=== PATIENT | female | born 1990 | race Caucasian/White ===

== ENCOUNTER 2021-08-17 09:20 | Outpatient (CLI) | payer MEDICAID ==
--- NOTE | 2021-08-17 10:19 | Ultrasound Report ---
PROCEDURE: Head or Neck Soft Tissue INDICATIONS: DISORDER OF NECK SOFT TISSUES TECHNIQUE: Real-time scanning was performed of the thyroid gland, with image documentation. COMPARISON: None FINDINGS: Right: Thyroid lobe measures 5.8 x 1.7 x 2 cm, and is homogeneous in echotexture. Left: Thyroid lobe measures 5.6 x 1.2 x 1.8 cm. Isthmus: 3 mm thick. No focal thyroid nodules are seen. A 5 mm anechoic cyst is seen within the mid left thyroid posteriorly. IMPRESSION: Mild generalized prominence of the thyroid gland. No focal thyroid nodules can be seen. ACR TI-RADS definitions and recommendations: TI-RADS 1 (benign): 0 points. FNA not needed. TI-RADS 2 (not suspicious): 2 points. FNA not needed. TI-RADS 3 (mildly suspicious): 3 points. "FNA if 2.5 cm or larger, follow up if 1.5 cm or larger (at 1, 3, and 5 years). TI-RADS 4 (moderately suspicious): 4-6 points. "FNA if 1.5 cm or larger, follow up if 1 cm or larger (at 1, 2, 3, and 5 years). TI-RADS 5 (highly suspicious): 7 points or more. "FNA if 1 cm or larger, follow up if 0.5 cm or larger (every year for 5 years). Reviewed by: Sunny Zuñiga MD on 08/17/2021 9:18 AM [facility] Approved by: Sunny Zuñiga MD on 08/17/2021 9:18 AM [facility] Station ID: [id number]
== END 2021-08-17 09:21 | disposition home or self-care (01) ==
LOC: DI 09:20
PROVIDERS: ATTEND Registered Nurse
DX: M79.9 Soft tissue disorder, unspecified (principal)